=== PATIENT | male | born 1970 | race Caucasian/White ===

== ENCOUNTER 2017-03-19 01:16 | Emergency (ER) | payer SELFPAY ==
[~2017-03-19] VITALS: Ht 165.1 cm; Wt 74.1 kg
[~2017-03-19 01:16] MED LIST: CELEXA10 MG PO; CLEOCIN300 MG PO; KEPPRA500 MG PO; NAPROXEN500 MG PO
[2017-03-19 02:32] LABS: HEMATOCRIT 45.8 % (38.0-50.0); MCH 32.4 PG (29.0-34.0); MCHC 36.2 G/DL (30.0-36.0); MCV 89.5 FL (86-99); MEAN PLAT.VOLUME 11.3 uM^3 (9.0-12.4); PLATELET COUNT 247 K/uL (156-360); RBC DIS.WIDTH-CV 12.3 % (11.8-14.6); RBC DIS.WIDTH-SD 40.8 % (39-53); RED BLOOD COUNT 5.12 M/uL (4.00-5.50); WHITE BLOOD COUNT 13.2 K/uL (4.1-10.2)
[2017-03-19 02:44] LABS: CHLORIDE 105 mEq/L (99-109); POTASSIUM 3.7 mEq/L (3.7-5.4); SODIUM 137 mEq/L (136-147)
[2017-03-19 02:46] LABS: GLUCOSE 98 mg/dL (70-99)
[2017-03-19 02:47] LABS: ANION GAP 14 MEQ/L (2-14)
[2017-03-19 02:49] LABS: SERUM ETHYL ALCOHOL < 10 mg/dL
[2017-03-19 02:50] LABS: GFR ESTIMATE (CALCULATED) > 59 mL/min/
[2017-03-19 02:51] LABS: UREA NITROGEN (BUN) 15 mg/dL (9-23)
[2017-03-19 04:10] LABS: BILIRUBIN NEGATIVE; BLOOD NEGATIVE; COLOR YELLOW ((YELLOW)); GLUCOSE (STRIP) NEGATIVE; KETONES NEGATIVE; LEUKOCYTES NEGATIVE; NITRITE NEGATIVE; PROTEIN (STRIP) NEGATIVE; SPECIFIC GRAVITY 1.018 (1.000-1.030); UROBILINOGEN 0.2 MG/DL (0.2-1.0)
[2017-03-19 04:18] LABS: ADD MIUA? NO; UCUL ADDED? NO
[2017-03-19 04:19] LABS: ADD MEDTOX COMMENT Y; AMPHETAMINE NEGATIVE (500 ng/mL); BARBITURATES NEGATIVE (200 ng/mL); BENZODIAZEPINES NEGATIVE (150 ng/mL); COCAINE NEGATIVE (150 ng/mL); INTERNAL CONTROLS VALID? YES; METHADONE NEGATIVE (200 ng/mL); METHAMPHETAMINE NEGATIVE (500 ng/mL); OPIATES (MORPHINE) NEGATIVE (100 ng/mL); OXYCODONE NEGATIVE (100 ng/mL); PHENCYCLIDINE NEGATIVE (25 ng/mL); PROPOXYPHENE NEGATIVE (300 ng/mL); THC CANNABINOIDS PRESUMPTIVE POSITIVE (50 ng/mL); TRICYCLIC ANTIDEPRESSANTS NEGATIVE (300 ng/mL)
[2017-03-19 05:18] VITALS: BP 134/87
== END 2017-03-19 05:20 | disposition home or self-care (01) ==
LOC: EME 01:16
PROVIDERS: Emergency Medicine
PROC: 3E0234Z Introduction of Serum, Toxoid and Vaccine into Muscle, Percutaneous Approach (ICD-10-PCS; principal; 2017-03-19)
DX: F32.9 Major depressive disorder, single episode, unspecified (principal); F12.20 Cannabis dependence, uncomplicated; S50.812A Abrasion of left forearm, initial encounter; Y28.8XXA Contact with other sharp object, undetermined intent, initial encounter; Z23 Encounter for immunization; F17.200 Nicotine dependence, unspecified, uncomplicated
CPT/HCPCS: 80048; 81003; 84999; 85027; 90839; 99281; 99285; G0480

== ENCOUNTER 2017-04-06 20:06 | Emergency (ER) | payer SELFPAY ==
[~2017-04-06] VITALS: Ht 165.1 cm; Wt 72.8 kg
[2017-04-06 21:01] VITALS: BP 130/83
== END 2017-04-06 21:02 | disposition home or self-care (01) ==
LOC: EME 20:06
DX: S63.501A Unspecified sprain of right wrist, initial encounter (principal); Y93.B3 Activity, free weights; F17.200 Nicotine dependence, unspecified, uncomplicated
CPT/HCPCS: 99281; 99284